=== PATIENT | male | born 1975 | race Two or more races ===

== ENCOUNTER 2018-09-10 23:37 | Emergency (ER) | payer MEDICAID ==
[~2018-09-10] VITALS: Ht 154.9 cm; Wt 5.1 kg
[2018-09-11] MEDS ORDERED: HYDROmorphone HCL 2 MG/ML VL IM ONE (04:00)
[2018-09-11 08:20] VITALS: BP 122/72
== END 2018-09-11 08:29 | disposition home or self-care (01) ==
LOC: ER 23:45
DX: M54.5 Low back pain (principal); M79.18 Myalgia, other site; Z88.6 Allergy status to analgesic agent; Z88.8 Allergy status to other drugs, medicaments and biological substances; W18.31XA Fall on same level due to stepping on an object, initial encounter; Y93.89 Activity, other specified; Y92.89 Other specified places as the place of occurrence of the external cause; Y99.8 Other external cause status
CPT/HCPCS: 72131; 96372; 99284; J1170